=== PATIENT | female | born 1950 | race Caucasian/White ===

== ENCOUNTER 2016-11-10 12:11 | Emergency (ER) | payer MEDICARE, OTHER ==
[~2016-11-10 12:11] MED LIST: ADVAIR 5001 DISK W/D IH; AMITRIPTYLINE H10 MG; ATIVAN0.5 M1 PO; ATIVAN1 MG PO; BENTYL20 MG PO; ELAVIL25 MG PO; ENDOCET 5-3251 EACH PO; ESGIC TABLET1 TAB PO; IBUPROFEN200 MG PO; LEVAQUIN500 MG PO; MAXALT; MAXALT10 MG; MAXALT10 MG PO; METHADONE5 MG PO; MOTRIN600 MG PO; OXYCODONE/APAP PO; PERCOCET; PERCOCET 10/31 UDTAB; PERCOCET 5/3251 TAB; PERCOCET 5/3251 TAB PO; SPIRIVA18 MCG IH; SYMBICORT 160-4.6 GM IH; ZOFRAN ODT4 MG/UDTAB PO; ZOFRAN ODT8 MG/TAB PO
[2016-11-10] MEDS ORDERED: PROAIR HFA8.5 GM INH (13:13)
== END 2016-11-10 14:05 ==
LOC: EDMED 12:11
DX: H11.32 Conjunctival hemorrhage, left eye (principal); G43.909 Migraine, unspecified, not intractable, without status migrainosus; Z85.828 Personal history of other malignant neoplasm of skin; Z90.710 Acquired absence of both cervix and uterus; Z87.891 Personal history of nicotine dependence; Z90.89 Acquired absence of other organs; Z98.890 Other specified postprocedural states